=== PATIENT | male | born 1965 | race Caucasian/White ===

== ENCOUNTER 2018-10-24 00:12 | Emergency (ER) | payer SELFPAY ==
[2018-10-24] MEDS: TETRACAINE 0.5% 4 ML OPH LEFT EYE (00:47)
[2018-10-24] MEDS: SOD CHLORIDE 0.9% 1,000 ML IV (00:47)
[2018-10-24] MEDS: ERYTHROMYCIN 1 GM OPH OINT LEFT EYE (04:05)
== END 2018-10-24 04:12 | disposition home or self-care (01) ==
LOC: E/R 00:12
DX: T65.891A Toxic effect of other specified substances, accidental (unintentional), initial encounter (principal)
CPT/HCPCS: 99284; 99284-25